=== PATIENT | female | born 1955 | race Caucasian/White ===

== ENCOUNTER 2019-07-16 11:33 | Inpatient (IN) | payer OTHER ==
[~2019-07-16] VITALS: Ht 160 cm; Wt 42.6 kg
[2019-07-16 11:38] VITALS: BP 97/74
[2019-07-16 12:08] LABS: HEMATOCRIT 36.1 % (37.0-47.0); HEMOGLOBIN 11.2 g/dl (12.0-16.0); MEAN CELL VOLUME 100.6 fl (81.0-99.0); MEAN CORPUSCULAR HGB 31.2 pg (27.0-31.0); MEAN PLATELET VOLUME 9.1 fl (9.6-12.3); PLATELET COUNT AUTOMATED 258 10*3/uL (130-400); RED BLOOD COUNT 3.59 10*6/uL (4.10-5.10); WHITE BLOOD COUNT 7.4 10*3/uL (4.8-10.8)
[2019-07-16 12:18] LABS: ACT PARTIAL THROMBO TIME 22.6 SECONDS (20.0-32.1); INTERNATIONAL NORM RATIO 0.9 (2.0-3.5)
[2019-07-16 12:24] LABS: ALBUMIN 3.1 gm/dl (3.1-4.5); ALKALINE PHOSPHATASE 58 U/L (45-117); BUN 20 mg/dl (7-24); CHLORIDE 107 mmol/L (98-107); CREATININE 0.55 mg/dL (0.55-1.02); LIPASE 233 U/L (73-393); POTASSIUM 4.5 mmol/L (3.5-5.1); SGOT/AST 16 IU/L (3-35); SGPT/ALT 34 U/L (12-78); SODIUM 141 mmol/L (136-145); TOTAL PROTEIN 6.1 gm/dL (6.4-8.2)
[2019-07-16 12:28] LABS: TROPONIN I < 0.015 ng/ml (<0.045)
[2019-07-16 12:31] LABS: TOTAL CELLS COUNTED 100 #CELLS
[2019-07-16 12:32] LABS: PLATELET SUFFICIENCY NORMAL (NORMAL); POLYCHROMASIA SLIGHT
--- NOTE | 2019-07-16 12:57 | NUR ---
PT REMAINS W/O ACUTE DISTRESS NOTED WITH SAFETY PRECAUTIONS INTACT,CALL LIGHT WITHIN REACH AND FAMILY @ BEDSIDE.
[2019-07-16 13:19] LABS: BILIRUBIN NEGATIVE (NEGATIVE); BLOOD NEGATIVE (NEGATIVE); CLARITY CLEAR (CLEAR); COLOR YELLOW (YELLOW); GLUCOSE NEGATIVE (NEGATIVE); KETONE NEGATIVE (NEGATIVE); LEUKO ESTERASE TRACE (NEGATIVE); NITRITE NEGATIVE (NEGATIVE); SPECIFIC GRAVITY 1.015 (1.005-1.030); UROBILINOGEN 0.2 E.U./dl (0.2-1.0)
[2019-07-16 13:35] LABS: RBC 0-2 rbc/hpf (0-2)
--- NOTE | 2019-07-16 13:37 | NUR ---
PT RESTING IN BED. SIDERAILS UP X2. IN NO ACUTE DISTRESS
--- NOTE | 2019-07-16 15:34 | NUR ---
DR. NIÑO OFFICE INFORMED OF CONSULT.
[2019-07-16 15:35] VITALS: BP 101/62
[2019-07-16 16:00] VITALS: BP 103/63
[2019-07-16] MEDS ORDERED: PROAIR HFA8.5 GM INH (16:08)
[2019-07-16] MEDS ORDERED: VITAMIN C500 M4 PO (16:08)
[2019-07-16] MEDS ORDERED: FISH OIL 1,0001 EAC4 PO (16:09)
[2019-07-16] MEDS ORDERED: IBU400 M1 PO (16:10)
[2019-07-16] MEDS ORDERED: RAYOS5 M1 PO (16:11)
[2019-07-16] MEDS ORDERED: PROTONIX40 MG PO (16:12)
[2019-07-16] MEDS ORDERED: PROBIOTIC250 MG PO (16:12)
[2019-07-16] MEDS ORDERED: SINGULAIR10 M1 PO (16:13)
[2019-07-16] MEDS ORDERED: PROVENTIL HFA6.7 GM NEB (16:13)
[2019-07-16] MEDS ORDERED: TRELEGY ELLIPT1 EACH INH (16:14)
[2019-07-16] MEDS ORDERED: VITAMIN B121000 MC1 PO (16:15)
[2019-07-16] MEDS ORDERED: ALPRAZOLAM0.25 M2 PO (18:05)
[2019-07-16 20:00] VITALS: BP 104/62
--- NOTE | 2019-07-16 20:31 | NUR ---
PRN XANAX, TYLENOL AND ZOFRAN GIVEN FOR PT COMPLAINTS OF ANXIETY, NAUSEA AND LEG PAIN. CALL LIGHT WITHIN REACH, WILL MONITOR
--- NOTE | 2019-07-16 23:45 | NUR ---
PATIENT SLEEPING, NO DISTRESS NOTED. CPAP IN PLACE
[2019-07-17] VITALS: BP 101/63
--- NOTE | 2019-07-17 04:39 | NUR ---
PATIENT SLEEPING. CALL LIGHT WITHIN REACH, O2 INTACT.
[2019-07-17 06:23] LABS: BASO % 0.3 % (0.0-1.0); EOS % 0.2 % (1.0-4.0); HEMATOCRIT 33.2 % (37.0-47.0); HEMOGLOBIN 10.2 g/dl (12.0-16.0); LYMPH # 1.4 10*3/uL (1.3-4.4); LYMPH % 23.7 % (27.0-41.0); MEAN CELL VOLUME 101.2 fl (81.0-99.0); MEAN CORPUSCULAR HGB 31.1 pg (27.0-31.0); MEAN CORPUSCULAR HGB CONC 30.7 g/dl (33.0-37.0); MEAN PLATELET VOLUME 9.7 fl (9.6-12.3); MONO # 0.5 10*3/uL (0.1-1.0); MONO % 7.7 % (3.0-9.0); NEUT # 3.9 10*3/uL (2.3-7.9); NEUT % 65.7 % (47.0-73.0); PLATELET COUNT AUTOMATED 232 10*3/uL (130-400); RED BLOOD COUNT 3.28 10*6/uL (4.10-5.10); WHITE BLOOD COUNT 5.9 10*3/uL (4.8-10.8)
[2019-07-17 06:47] LABS: BUN 18 mg/dl (7-24); CHLORIDE 108 mmol/L (98-107); POTASSIUM 4.2 mmol/L (3.5-5.1); SODIUM 143 mmol/L (136-145)
--- NOTE | 2019-07-17 07:41 | NUR ---
PHYSICAL THERAPY Screen and PT eval received will follow thank you Farheen Casanova PT
[2019-07-17 08:00] VITALS: BP 110/68
--- NOTE | 2019-07-17 09:00 | NUR ---
Director Electronics in to talk to patient. Patient states lives at home with daughter and grandson. There are few steps in the home. Physician: [facility] Patient's level of ADLs: MINIMAL ASSIST Patient has working utilities: all working DME: home oxygen, portable tanks Follow-up physician's appointment after d/c: will be made by hospitalist alex director upon discharge Does patient want to access PORTAL?: no Discharge plan discussed with patient, patient was ambulating in room with oxygen on and short of breath, she states she lives at home with her daughter and her grandson, she states she is independent in adls and ambualtion, she has been in [facility] for 2 weeks and recently discharged home with [facility] and also her oxygen is from [facility], discussed with her being weak and needing a possibly short term prison stay, educated her that she will receive 5 days of rehab and 24 hour care, she stated she was not opposed to going to a SNF but when she was in [facility] they stated she was unable to go to any area facilities, educated her that case planner will check area facilities and see if any of them accepted her insurance, case management will follow. YAKOV CHACKO
--- NOTE | 2019-07-17 11:45 | NUR ---
PT MEDICATED WITH XANAX UPON REQUEST FOR COMPLAINTS OF ANXIETY. WILL MONITOR FOR EFFECTIVENESS.
[2019-07-17 12:00] VITALS: BP 98/48
--- NOTE | 2019-07-17 13:00 | NUR ---
PER PATIENT, PRN XANAX HAS BEEN EFFECTIVE. NO FURTHER COMPLAINTS AT THIS TIME.
[2019-07-17] MEDS ORDERED: AUGMENTIN 875875 MG PO (14:03)
[2019-07-17] MEDS ORDERED: SEPTDS PO (14:03)
--- NOTE | 2019-07-17 14:41 | NUR ---
PHYSICAL THERAPY Vadim completed moderate complexity level [id number] full report to follow pt would benefit from further rehab prior to home. PT to work on transfers,amb with AD strengthening,balance/safety. Farheen Casanova PT
--- NOTE | 2019-07-17 14:52 | NUR ---
Occupational Therapy evaluation completed on the 4th floor with full eval to follow. Low complexity level. Daughter present during evaluation. Precuations: left knee vita/pain (pain prior to buckeling however inconsistent), IV site, 4L O2, fall risk. Recommend SNF. Work on balance, safety with transfers, dressing. Thank you for this referral, Sarah Peralta OTR/L
--- NOTE | 2019-07-17 15:30 | NUR ---
Patient resting quietly with no c/o discomfort. Respirations easy and regular. Vital signs stable. No overt distress. SAVANNAH PARSONS
--- NOTE | 2019-07-17 15:36 | NUR ---
prn xanax given d/t pt complaining of anxiety
[2019-07-17 16:00] VITALS: BP 103/62
--- NOTE | 2019-07-17 16:36 | NUR ---
PRN XANAX EFFECTIVE NO COMPLAINTS AT THIS TIME
[2019-07-17 20:00] VITALS: BP 112/66
--- NOTE | 2019-07-17 20:36 | NUR ---
PATIENT IS SLEEPING WITH EASY AND REGULAR RESPERS ON 4L O2 VIA NC. ASSESSMENT IS COMPLETE WITH NO C/O VOICED AT THIS TIME OR S/S OF DISTRESS NOTED. BED IS LOW, LOCKED, AND CALL LIGHT IS WITHIN REACH. WILL CONTINUE TO MONITOR, SEE SHIFT ASSESSMENT.
[2019-07-18] VITALS: BP 107/73
--- NOTE | 2019-07-18 04:12 | NUR ---
PATIENT SLEEPING, RESPERS NONLABORED 4L O2 VIA NC. CALL LIGHT IS WITHIN REACH.
[2019-07-18 08:00] VITALS: BP 104/56
--- NOTE | 2019-07-18 08:43 | NUR ---
After calling insurance company, they are stating the following snf facilities are in network: [facility]. [facility] is stating they are unable to accept her at this time. Referral faxed to [facility], waiting on benefits check.
--- NOTE | 2019-07-18 09:47 | NUR ---
OT NOTE Pt was seen this A.M. 1:1 for 17 minute OT session. Upon arrival pt was supine in bed. Pt identified by name and and had no complaints at this time. Pt presented to therapy on room air with resting SpO2 at 94%. Pt transferred supine to sit EOB with SBA. While sitting EOB pt donned B socks with SBA. Pt then completed sit to stand from bed level with CGA, pt attempting to complete mobility without the w/w resulting in pt being very unsteady and having multiple LOB backwards that required Lulu to correct. Pt transferred on/off standard commode with SBA and use of grab bar for UE support. Clothing management completed with SBA and toilet hygiene completed with SBA. Pt then stood sink side while washing her hands with SBA. Pt continued to attempt to complete mobility without the w/w and continued to have LOB backwards that required Lulu to correct. Pt was educated on safety concerns without the use of walker and pt was then willing to complete with use of w/w. Functional mobility completed around the room with use of w/w and CGA. Pt's SpO2 throughout remained anywhere between 92-94% on room air. Pt transferred back into bed sit to supine with SBA. There she was left with call [facility] tin hand, tray table in place, and family at bedside. Continue with rec D/C plan to SNF. JOANNA Yang/Brien
--- NOTE | 2019-07-18 10:23 | NUR ---
PHYSICAL THERAPY TREATMENT TIME: 09:20 AM - 09:45 25 MINUTES TOTAL Patient presented to therapy in standing coming out of restroom with no spO2 ON AT THIS TIME. When asked why she didn't have O2 on she said that Dr. Pickard and [facility] had told her to take the O2 off. This CONSULTING PROPERTY MANAGER inquired with KJ WELCH , who is the patient's nurse about whether the patient shOuld have spO2 OR NOT. KJ WELCH Talked to Loc from [facility] and Loc said she she should by on O2. a FEW MINUTES LATER LOC from [facility] called and let KJ WELCH know that the patient was taken off the O2 by Dr. Pickard WHEN SHE IS RESTING and with MODERATE ACTIVITY. Patient is on 3 liters normally and was earlier on 4 liters. Patient's daughter confirmed what Dr. Pickard had said and what respitory said. Patient's NURSE KJ WELCH said that patient can try walking without the spO2 to see how she does , but to keep pulse ox ON PATIENT'S FINGER. This CONSULTING PROPERTY MANAGER put pulse ox on patient's finger and patient transferred sit to stand with SBA. Patient ambulated 50' x 1 and then again for 44' x 1 with CGA X 1 to Close Supervision with beginning O2 SAT recorded as 93% without spO2 , DURING BOTH GAIT DISTANCES the O2 SAT RANGED BETWEEN 91% AND 94% and the at the end of the 2 nd gait distance the O2 SAT was recorded as 94%. THIS WAS WITH NO spO2. Patient performed TUG TEST IN 26 SECONDS TOTAL. Patient transferred to supine in bed with SBA. Patient was connected to wall with 3 liters of spO2 BUT DID NOT WANT the nasal canula at this time. Patient was left in supine in bed with head of bed elevated, call light within reach and daughter visitng in room with patient at this time. Patient was 1:1 with this CONSULTING PROPERTY MANAGER for 25 minutes total. AUGIE ALFARO CONSULTING PROPERTY MANAGER
[2019-07-18 12:00] VITALS: BP 110/52
--- NOTE | 2019-07-18 13:50 | NUR ---
OT NOTE Pt was seen this P.M. 1:1 for second OT session consisting of 15 minutes. Upon arrival pt was sitting upright on the EOB and presented to therapy on room air with resting SpO2 at 94%. Pt completed sit to stand from bed level with CGA. Pt attempted to complete mobility with no adaptive device and pt had LOB backwards that required Lulu to correct. Pt then completed functional mobility to the bathroom with CGA and use of w/w. There she transferred on/off standard commode with CGA and use of grab bar. Pt then stood sink side while washing her hands with CGA. Throughout activity pt's SpO2 dropped to 92%. Pt was left sitting upright on the EOB with call light in hand, tray table in place, and phone in reach. Continue with rec D/C plan to SNF. JOANNA Yang/Brien
--- NOTE | 2019-07-18 14:30 | NUR ---
TYLENOL EFF FOR C/O LEFT KNEE PAIN. WILL CONT TO MONITOR. CALL LIGHT IN REACH.
--- NOTE | 2019-07-18 14:33 | NUR ---
C/O PAIN TO LEFT KNEE OF 5/10. TYLENOL GIVEN AT THIS TIME. WILL CONT TO MONITOR. CALL LIGHT IN REACH.
--- NOTE | 2019-07-18 14:50 | NUR ---
PHYSICAL THERAPY TREATMENT TIME: 1:45 PM - 2:05 PM 20 MINUTES TOTAL PATIENT PRESENTED TO THERAPY IN SUPINE WITH HEAD OF BED ELEVATED AND BED ALARM ACTIVATED, PATIENT IS NOT ON SPO2 AT THIS TIME EVEN THOUGH THE NASAL CANULA IS PRESENT WITH 3 LITERS SPO2. PATIENT GIVES INFORMEED CONSENT FOR TREATMENT. PATIENT WAS IDENTIFIED BY NAME AND ON WRISTBAND. PATIENT PERFORMED BED MOBILITY WITH SBA. PATIENT SIT TO STAND FROM EOB WITH CGA X 1. PATIENT AMBULATED WITH WH WALKER AND CGA X 1 FOR 60' X 2 WITH O2 SATS AT BEGINNING AT 94% AND PULSE 107 AND DURING AMBULATION THE 02 SATS DROPPED TO 88% AT ONE POINT AND PULSE AT 135. PATIENT'S 02 SATS WERE AT 94% POST AMBULATION AND PULSE AT 116. PATIENT DID NOT USE SPO2 DURING AMBULATION. PATIENT TRANSFERRED BACK ONTO SITTING ON EOB WITH CGA X 1. PATIENT WAS LEFT IN SITTING ON EOB WITH CALL LIGHT WITHIN REACH. PATIENT WAS 1:1 WITH THIS GREETING CARD WRITER FOR 20 MINUTES TOTAL. AUGIE ALFARO GREETING CARD WRITER
--- NOTE | 2019-07-18 15:26 | NUR ---
C/O ANXIETY. XANAX GIVEN AT THIS TIME PER REQUEST. WILL CONT TO MONITOR. CALL LIGHT IN REACH.
--- NOTE | 2019-07-18 15:37 | NUR ---
OCCUPATIONAL THERAPY CO-SIGN I approve of the Occupational Therapy notes written above. Valery Lamb, OTR/L
[2019-07-18 16:00] VITALS: BP 111/89
[2019-07-18 20:00] VITALS: BP 136/68
[2019-07-19] VITALS: BP 107/66; BP 141/67
--- NOTE | 2019-07-19 00:25 | NUR ---
PATIENT REQUESTED TYLENOL AT 0020. WHILE ADMINISTERING REQUESTED TYLENOL PATIENT BECAME VERY RUDE AND NASTY STATING "I HAVE BEEN WAITING FOR TYLENOL SINCE I GOT MY ICE PACK." WHEN TYING TO FIGURE OUT TIME FRAME OF TYLENOL REQUEST PATIENT CONTINUE TO BE RUDE. PRN TYLENOL GIVEN FOR KNEE PAIN AND ZOFRAN FOR NAUSEA. CALL LIGHT IS WITHIN REACH. WILL MONITOR EFFECT.
[2019-07-19 08:00] VITALS: BP 118/72
--- NOTE | 2019-07-19 09:00 | NUR ---
OT NOTE Pt was seen this A.M. 1:1 for 28 minute OT session. Upon arrival pt was sitting upright in the recliner. Pt identified by name and and had no complaints at this time. Pt presented to therapy on room air and resting SpO2 95% and heart rate 99 bpm. While sitting in the recliner pt was requested to doff and gissel B socks which she was able to complete with energy conservation technique of bringing her leg up over knee. Sit to stand then completed from the chair level with CGA and use of w/w for UE support. Pt continued to attempt to walk without the walker increasing risk of falls due to being unsteady at times, educated pt on safety concerns. Functional mobility was then completed into the bathroom with CGA and use of w/w. There she transferred on/off standard commode with CGA and use of grab bar for UE support. Clothing management completed with CGA and toilet hygiene completed with distant supervision while seated. Pt then stood sink side while washing her hands, face, completing oral and hair care with CGA. Throughout pt was educated on energy conservation techniques and pt verbalized understanding. Throughout activity pt's SpO2 dropped to 91% and after sitting back into the recliner dropped to 90%. After aprox 15 second recovery pt's SpO2 raised back to 95%. Pt was left sittng upright in the recliner with call light in hand, tray table in place, and phone in reach. Continue with rec D/C plan to SNF. YONG Yang
--- NOTE | 2019-07-19 09:00 | NUR ---
case management visits with patient, she stated she didn't feel she needed to go to a short term jail, she felt stronger since admission and stated she already has [facility], nursing, physical and occupational therapy, she also has home oxygen with portable tanks, patient was ambulating in room with no loss of balance at this time, case management will notify [facility] when she is discharged
--- NOTE | 2019-07-19 10:16 | NUR ---
PT GIVEN XANAX AT THIS TIME PER REQUEST FOR C/O ANXIETY. WILL CONT TO MONITOR. CALL LIGHT IN REACH.
--- NOTE | 2019-07-19 11:16 | NUR ---
RAHEEMX EFF. WILL CONT TO MONITOR. CALL LIGHT IN REACH.
[2019-07-19 12:00] VITALS: BP 116/64
--- NOTE | 2019-07-19 13:25 | NUR ---
PHYSICAL THERAPY Patient seen this pm 1:1 for therapy visit and was sitting up in bedside chair upon therapist arrival. Patient identified by name / OOB and was quiet pleasant this afternoon voicing no new c/o's. Patient SPO2 94% on RA, with HR 102 bpm prior to transfering sit to stand SBA. Patient ambulated with use of wh walker, 100'x 1, SBA, demonstrating slow, steady marshall and increased caution during all turns. Patient instructed to pace herself to improve energy conservation and returned to bedside chair with no LOB this session. Patient still demonstrates a little fatigue following gait ex and remained in bedside chair with call light, tray table and cell phone. Will continue per POC as tolerated, total treatment time 14 minutes. Luan Chahal, UNIVERSITY TUTOR
--- NOTE | 2019-07-19 14:18 | NUR ---
case management spoke with Alvina from [facility], patient's information faxed to Alvina, she stated they would continue to follow patient, informed her that patient is a discharge for today or tomorrow
[2019-07-19 16:00] VITALS: BP 133/80
--- NOTE | 2019-07-19 18:12 | NUR ---
C/O PAIN TO LEFT KNEE OF 8/10 AND ANXIETY. GIVEN TYLENOL AND XANAX AT THIS TIME. WILL CONT TO MONITOR. CALL LIGHT IN REACH.
[2019-07-19 20:00] VITALS: BP 130/72
--- NOTE | 2019-07-19 21:32 | NUR ---
PATIENT MEDICATED WITH ZOFRAN AND DULCOLAX FOR C/O NAUSEA AND CONSTIPATION. WILL MONITOR
[2019-07-20] VITALS: BP 115/75
--- NOTE | 2019-07-20 04:03 | NUR ---
PATIENT MEDICATED WITH ZOFRAN/TYLENOL AND XANAX FOR C/O GENERALIZED PAIN/NAUSEA/NERVES. WILL MONITOR
--- NOTE | 2019-07-20 05:03 | NUR ---
ZOFRAN/TYLENOL/XANAX EFFECTIVE
[2019-07-20 06:50] LABS: BASO % 0.4 % (0.0-1.0); EOS % 0.1 % (1.0-4.0); HEMATOCRIT 35.2 % (37.0-47.0); HEMOGLOBIN 10.6 g/dl (12.0-16.0); LYMPH # 1.6 10*3/uL (1.3-4.4); LYMPH % 20.4 % (27.0-41.0); MEAN CELL VOLUME 103.8 fl (81.0-99.0); MEAN CORPUSCULAR HGB 31.3 pg (27.0-31.0); MEAN CORPUSCULAR HGB CONC 30.1 g/dl (33.0-37.0); MEAN PLATELET VOLUME 9.6 fl (9.6-12.3); MONO # 0.5 10*3/uL (0.1-1.0); MONO % 7.1 % (3.0-9.0); NEUT # 5.4 10*3/uL (2.3-7.9); PLATELET COUNT AUTOMATED 229 10*3/uL (130-400); RED BLOOD COUNT 3.39 10*6/uL (4.10-5.10); RED CELL DISTRI WIDTH 15.8 % (0-14.5); WHITE BLOOD COUNT 7.7 10*3/uL (4.8-10.8)
[2019-07-20 08:00] VITALS: BP 118/68
--- NOTE | 2019-07-20 09:00 | NUR ---
case management visits with patient, she will return home when medically stable and will have [facility] health follow her, no other needs at this time
--- NOTE | 2019-07-20 11:55 | NUR ---
OT NOTE PATIENT SEEN OT THIS AM 15 MINUTES. PATIENT IDENTIFIED BY NAME AND DATE OF . PATIENT COMPLETED LB DRESSING SEATED EOB MO AFTER MURILLO SULLY SOCKS. COMPLETED FUNCTIONAL AMBULATION TO BATROOM CGA USE FWW SUPPORT COMPLETING TOILET TRANSFER SUPERVISION ON 02 WITH 02 SATS REMAINING WITHIN NORMAL RANGE. PATIENT REPORTS 3/10 KNEE PAIN THIS DATE. PATIENT COMPLETED STAND TOLERANCE ACTIVITY USE FWW SUPPORT 3 1/2 MINTES F+ BALANCE AND MIN VERBAL CUES SAFETY AND SOME INSTABILITY NOTED. CONTINUE TOWARDS PLAN OF CARE. GONZALO MARSHALL/Brien
--- NOTE | 2019-07-20 12:02 | NUR ---
PT C/O CONSTIPATION. GIVEN DULCOLAX AT THIS TIME.
--- NOTE | 2019-07-20 12:04 | NUR ---
PHYSICAL THERAPY TREATMENT TIME: 09:00 AM - 09:15 AM 15 MINUTES TOTAL Patient presented to therapy this morning in sitting EOB with tray table in front of her and no spo2 at this time. Patient is supposed to be on spO2 today even though she was not on it yesterday per DR. Pickard. Patient is 4 liters of spO2 VIA NASAL CANULA. This MEDICAL INSURANCE CLAIMS PROCESSOR put spO2 on patient. Patient has no complaints except for some mild SOB from being off spO2. Patient has continued L KNEE pain of 5/10. Patient performed supine to sitting at EOB with with SBA. Patient sit to stand from EOB with MIN A X 1. Patient ambulated with Wh Walker and 4 liters of spO2 VIA NASAL CANULA FOR 60' X 1 amd 50' x 1 with CGA X 1 to Close Supervision with O2 SATs measured and recorded as 94% pre ambulation and 91% post ambulation and quickley recovering to 94% post ambulation. Patient transferred back to supine in bed with SBA. Patient left in supine with head of bed elevated, call light within reach and tray table near patient. Patient was 1:1 with this MEDICAL INSURANCE CLAIMS PROCESSOR for 15 minutes total. AUGIE ALFARO TPA
--- NOTE | 2019-07-20 13:22 | NUR ---
PATIENT C/O KNEE PAIN. RATE 5/10 ON PAIN SCALE. ALSO C/O ANXIETY AND STATES THAT SHE HAD A SMALL EMESIS DUE TO SHE WAS TRYING TO COUGH UP PHLEGM. MEDICATED WITH XANAX AND ZOFRAN PER PRN ORDERS. WILL CONTINUE TO MONITOR.
[2019-07-20] MEDS ORDERED: PREDNISONE10 MG PO (13:27)
--- NOTE | 2019-07-20 14:36 | NUR ---
PT DISCHARGED AT THIS TIME. IV REMOVED AND PRESSURE DRESSING APPLIED. VERBALIZED UNDERSTANDING OF DISCHARGE INSTRUCTIONS.
--- NOTE | 2019-07-20 15:34 | NUR ---
PHYSICAL THERAPY CO-SIGN I approve of the Physical Therapy notes written above. Farheen Casanova PT
--- NOTE | 2019-07-23 08:09 | NUR ---
OCCUPATIONAL THERAPY CO-SIGN I approve of the Occupational Therapy notes written above. Valery Lamb, OTR/L
== END 2019-07-20 14:36 | disposition home health service (06) | DRG 193 ==
LOC: ED 11:33 → EDHOLD 14:44 → 4E 14:44
PROVIDERS: Emergency Medicine; Student in an Organized Health Care Education/Training Program; ADMIT Internal Medicine
DX: J18.9 Pneumonia, unspecified organism (principal); I50.31 Acute diastolic (congestive) heart failure; J44.1 Chronic obstructive pulmonary disease with (acute) exacerbation; J96.11 Chronic respiratory failure with hypoxia; J96.12 Chronic respiratory failure with hypercapnia; J44.0 Chronic obstructive pulmonary disease with (acute) lower respiratory infection; R91.1 Solitary pulmonary nodule; J30.2 Other seasonal allergic rhinitis; D53.9 Nutritional anemia, unspecified; E83.41 Hypermagnesemia; D72.810 Lymphocytopenia; K21.9 Gastro-esophageal reflux disease without esophagitis; Z80.1 Family history of malignant neoplasm of trachea, bronchus and lung; Z90.711 Acquired absence of uterus with remaining cervical stump; Z88.5 Allergy status to narcotic agent; Z81.8 Family history of other mental and behavioral disorders; Z86.718 Personal history of other venous thrombosis and embolism; Z79.01 Long term (current) use of anticoagulants

== ENCOUNTER 2020-11-16 11:32 | Emergency (ER) | payer MEDICARE ==
[~2020-11-16] VITALS: Wt 53.1 kg
[~2020-11-16 11:32] MED LIST: ALPRAZOLAM0.25 M2 PO; AUGMENTIN 875875 MG PO; FISH OIL 1,0001 EAC4 PO; IBU400 M1 PO; PREDNISONE10 MG PO; PROAIR HFA8.5 GM INH; PROBIOTIC250 MG PO; PROTONIX40 MG PO; PROVENTIL HFA6.7 GM NEB; RAYOS5 M1 PO; SEPTDS PO; SINGULAIR10 M1 PO; TRELEGY ELLIPT1 EACH INH; VITAMIN B121000 MC1 PO; VITAMIN C500 M4 PO
[2020-11-16 12:17] LABS: BASO # 0.1 10*3/uL (0.0-0.1); EOS # 0.2 10*3/uL (0.0-0.4); EOS % 3.3 % (1.0-4.0); HEMATOCRIT 42.6 % (37.0-47.0); LYMPH # 1.6 10*3/uL (1.3-4.4); LYMPH % 32.8 % (27.0-41.0); MEAN CELL VOLUME 94.2 fl (81.0-99.0); MEAN CORPUSCULAR HGB 29.6 pg (27.0-31.0); MEAN CORPUSCULAR HGB CONC 31.5 g/dl (33.0-37.0); MEAN PLATELET VOLUME 9.4 fl (9.6-12.3); MONO # 0.5 10*3/uL (0.1-1.0); MONO % 11.3 % (3.0-9.0); NEUT # 2.5 10*3/uL (2.3-7.9); NEUT % 51.4 % (47.0-73.0); PLATELET COUNT AUTOMATED 315 10*3/uL (130-400); RED BLOOD COUNT 4.52 10*6/uL (4.10-5.10); RED CELL DISTRI WIDTH 13.6 % (0-14.5); WHITE BLOOD COUNT 4.8 10*3/uL (4.8-10.8)
[2020-11-16 12:35] LABS: ALBUMIN 3.4 gm/dl (3.1-4.5); ALKALINE PHOSPHATASE 90 U/L (45-117); BUN 8 mg/dl (7-24); CHLORIDE 113 mmol/L (98-107); CREATININE 0.66 mg/dL (0.55-1.02); POTASSIUM 3.5 mmol/L (3.5-5.1); SGOT/AST 14 IU/L (3-35); SGPT/ALT 14 U/L (12-78); SODIUM 143 mmol/L (136-145); TOTAL PROTEIN 7.7 gm/dL (6.4-8.2)
[2020-11-16] MEDS ORDERED: PREDNISONE50 MG PO (13:49)
[2020-11-16] MEDS ORDERED: LEVOFLOXACIN500 MG PO (13:49)
== END 2020-11-16 14:01 | disposition home or self-care (01) ==
LOC: ED 11:32
PROVIDERS: Student in an Organized Health Care Education/Training Program
DX: J44.1 Chronic obstructive pulmonary disease with (acute) exacerbation (principal); Z72.3 Lack of physical exercise; Z87.891 Personal history of nicotine dependence; Z90.89 Acquired absence of other organs; Z79.899 Other long term (current) drug therapy; Z88.5 Allergy status to narcotic agent

== ENCOUNTER 2022-06-12 13:12 | Inpatient (IN) | payer MEDICARE ==
[~2022-06-12] VITALS: Ht 160 cm; Wt 39.3 kg
[~2022-06-12 13:12] MED LIST changes: +LEVOFLOXACIN500 MG PO; +LEVOTHYROXINE100 MC1 PO; +LIDODERM1 EACH T; +MELOXICAM15 MG PO; +PREDNISONE50 MG PO
[2022-06-12 13:20] VITALS: BP 94/66
[2022-06-12 13:47] LABS: BASO % 0.6 % (0.0-1.0); EOS # 0.1 10*3/uL (0.0-0.4); EOS % 0.9 % (1.0-4.0); HEMATOCRIT 43.8 % (37.0-47.0); LYMPH # 1.6 10*3/uL (1.3-4.4); LYMPH % 25.3 % (27.0-41.0); MEAN CELL VOLUME 92.4 fl (81.0-99.0); MEAN CORPUSCULAR HGB CONC 33.6 g/dl (33.0-37.0); MEAN PLATELET VOLUME 9.9 fl (9.6-12.3); MONO # 0.4 10*3/uL (0.1-1.0); MONO % 6.4 % (3.0-9.0); NEUT # 4.3 10*3/uL (2.3-7.9); NEUT % 66.8 % (47.0-73.0); PLATELET COUNT AUTOMATED 239 10*3/uL (130-400); RED BLOOD COUNT 4.74 10*6/uL (4.10-5.10); RED CELL DISTRI WIDTH 12.7 % (0-14.5); WHITE BLOOD COUNT 6.4 10*3/uL (4.8-10.8)
[2022-06-12 14:09] LABS: ALKALINE PHOSPHATASE 65 U/L (46-116); BUN 7 mg/dl (9-23); CHLORIDE 105 mmol/L (98-107); CREATININE 0.65 mg/dL (0.55-1.02); SGPT/ALT 8 U/L (10-49); SODIUM 139 mmol/L (136-145); TOTAL PROTEIN 6.1 gm/dL (6.0-8.0)
[2022-06-12 15:31] VITALS: BP 100/54
[2022-06-12 16:07] LABS: FREE T4 1.37 ng/dl (0.89-1.76); THYROID STIM HORMONE (HS) 17.581 uIU/ml (0.550-4.780)
[2022-06-12 16:41] LABS: ABG BASE EXCESS -3.9 mmol/L (-2.0-2.0); ARTERIAL BLOOD GAS PH 7.294 (7.35-7.45); ARTERIAL BLOOD GAS PO2 97.6 (80-90)
[2022-06-12 19:30] VITALS: BP 134/78
[2022-06-12 21:57] VITALS: BP 95/58
[2022-06-13] VITALS (11 sets, daily range): BP systolic 78–111; BP diastolic 40–72
[2022-06-13 05:06] LABS: ALKALINE PHOSPHATASE 55 U/L (46-116); BUN 8 mg/dl (9-23); CHLORIDE 108 mmol/L (98-107); CREATININE 0.58 mg/dL (0.55-1.02); POTASSIUM 3.7 mmol/L (3.4-5.1); SODIUM 142 mmol/L (136-145); TOTAL PROTEIN 5.1 gm/dL (6.0-8.0)
[2022-06-13 05:12] LABS: SGPT/ALT < 7 U/L (10-49)
[2022-06-13 06:11] LABS: BASO % 0.7 % (0.0-1.0); EOS # 0.1 10*3/uL (0.0-0.4); EOS % 1.7 % (1.0-4.0); HEMATOCRIT 39.3 % (37.0-47.0); LYMPH # 1.9 10*3/uL (1.3-4.4); LYMPH % 34.3 % (27.0-41.0); MEAN CELL VOLUME 94.7 fl (81.0-99.0); MEAN CORPUSCULAR HGB 30.4 pg (27.0-31.0); MEAN CORPUSCULAR HGB CONC 32.1 g/dl (33.0-37.0); MEAN PLATELET VOLUME 10.7 fl (9.6-12.3); MONO # 0.6 10*3/uL (0.1-1.0); MONO % 10.2 % (3.0-9.0); NEUT # 2.9 10*3/uL (2.3-7.9); NEUT % 52.9 % (47.0-73.0); PLATELET COUNT AUTOMATED 211 10*3/uL (130-400); RED BLOOD COUNT 4.15 10*6/uL (4.10-5.10); WHITE BLOOD COUNT 5.4 10*3/uL (4.8-10.8)
[2022-06-13 06:23] LABS: BILIRUBIN Negative (Negative); BLOOD Negative (Negative); CLARITY Clear (Clear); COLOR Yellow (Yellow); GLUCOSE Negative (Negative); KETONE Trace (Negative); LEUKO ESTERASE Negative (Negative); NITRITE Negative (Negative); PH 5.5 (4.5-8.0); SPECIFIC GRAVITY >= 1.030 (1.001-1.030); UROBILINOGEN 0.2 E.U./dl (0.0-1.0)
[2022-06-13 06:30] LABS: URINE AMPHETAMINES Positive (1000ng/ml); URINE BARBITURATES Negative (200ng/ml); URINE BENZODIAZEPINES Positive (200ng/ml); URINE CANNABINOIDS (THC) Negative (50ng/ml); URINE COCAINE Negative (300ng/ml); URINE METHADONE Negative (300ng/ml); URINE OPIATES Negative (300ng/ml); URINE PHENCYCLIDINE Negative (25ng/ml)
[2022-06-13 06:48] LABS: BACTERIA 2+; CALCIUM OXALATE CRYSTALS 1+; EPITHELIAL CELLS 0-2; MUCOUS TRACE; RBC 0-2 rbc/hpf (0-2); WBC 0-2 wbc/hpf (0-5)
[2022-06-14 05:21] LABS: ALKALINE PHOSPHATASE 53 U/L (46-116); BUN 6 mg/dl (9-23); CHLORIDE 106 mmol/L (98-107); CREATININE 0.53 mg/dL (0.55-1.02); POTASSIUM 3.8 mmol/L (3.4-5.1); SODIUM 140 mmol/L (136-145); TOTAL PROTEIN 5.2 gm/dL (6.0-8.0)
[2022-06-14 05:39] LABS: SGPT/ALT < 7 U/L (10-49)
[2022-06-14 06:08] LABS: BASO # 0.1 10*3/uL (0.0-0.1); BASO % 1.1 % (0.0-1.0); EOS # 0.1 10*3/uL (0.0-0.4); EOS % 3.2 % (1.0-4.0); HEMATOCRIT 37.9 % (37.0-47.0); LYMPH # 1.5 10*3/uL (1.3-4.4); LYMPH % 33.3 % (27.0-41.0); MEAN CELL VOLUME 94.3 fl (81.0-99.0); MEAN CORPUSCULAR HGB 31.3 pg (27.0-31.0); MEAN CORPUSCULAR HGB CONC 33.2 g/dl (33.0-37.0); MEAN PLATELET VOLUME 10.3 fl (9.6-12.3); MONO # 0.3 10*3/uL (0.1-1.0); MONO % 7.3 % (3.0-9.0); NEUT # 2.4 10*3/uL (2.3-7.9); NEUT % 55.1 % (47.0-73.0); PLATELET COUNT AUTOMATED 199 10*3/uL (130-400); RED BLOOD COUNT 4.02 10*6/uL (4.10-5.10); RED CELL DISTRI WIDTH 12.6 % (0-14.5); WHITE BLOOD COUNT 4.4 10*3/uL (4.8-10.8)
[2022-06-14 08:00] VITALS: BP 93/51
[2022-06-14 12:00] VITALS: BP 99/57
[2022-06-14] MEDS ORDERED: STIOLTO RESPIMAT4 GM INH (13:03)
[2022-06-14] MEDS ORDERED: PROTONIX40 MG PO (13:04)
[2022-06-14] MEDS ORDERED: CYMBALTA60 MG PO (13:06)
[2022-06-14] MEDS ORDERED: ARNUITY ELLIPT50 MCG INH (13:10)
[2022-06-14] MEDS ORDERED: MIRALAX POWDER17 G1 PO (13:12)
[2022-06-14] MEDS ORDERED: SENNA8.6 MG PO (13:13)
[2022-06-14 16:00] VITALS: BP 104/58
[2022-06-14 20:00] VITALS: BP 102/52
[2022-06-15] VITALS: BP 102/60
[2022-06-15 06:32] LABS: BASO % 0.9 % (0.0-1.0); EOS # 0.1 10*3/uL (0.0-0.4); EOS % 2.5 % (1.0-4.0); HEMATOCRIT 34.4 % (37.0-47.0); LYMPH # 1.4 10*3/uL (1.3-4.4); LYMPH % 31.4 % (27.0-41.0); MEAN CELL VOLUME 92.7 fl (81.0-99.0); MEAN CORPUSCULAR HGB 30.5 pg (27.0-31.0); MEAN CORPUSCULAR HGB CONC 32.8 g/dl (33.0-37.0); MEAN PLATELET VOLUME 10.7 fl (9.6-12.3); MONO # 0.4 10*3/uL (0.1-1.0); MONO % 8.8 % (3.0-9.0); NEUT # 2.4 10*3/uL (2.3-7.9); NEUT % 56.4 % (47.0-73.0); PLATELET COUNT AUTOMATED 198 10*3/uL (130-400); RED BLOOD COUNT 3.71 10*6/uL (4.10-5.10); RED CELL DISTRI WIDTH 12.6 % (0-14.5); WHITE BLOOD COUNT 4.3 10*3/uL (4.8-10.8)
[2022-06-15 08:00] VITALS: BP 117/88
[2022-06-15 09:27] LABS: ALKALINE PHOSPHATASE 53 U/L (46-116); BUN 6 mg/dl (9-23); CHLORIDE 105 mmol/L (98-107); CREATININE 0.52 mg/dL (0.55-1.02); POTASSIUM 3.7 mmol/L (3.4-5.1); SODIUM 143 mmol/L (136-145); TOTAL PROTEIN 5.3 gm/dL (6.0-8.0)
[2022-06-15 09:36] LABS: SGPT/ALT < 7 U/L (10-49)
[2022-06-15] MEDS ORDERED: ASPIRIN ADULT L81 M2 PO (11:53)
[2022-06-15] MEDS ORDERED: TOPROL XL25 MG PO (11:53)
== END 2022-06-15 12:45 | disposition home or self-care (01) | DRG 280 ==
LOC: ED 13:12 → EDHOLD 14:45 → 4E 06-13 21:50
PROVIDERS: Family Medicine; Internal Medicine; ADMIT Emergency Medicine; ATTEND Emergency Medicine
PROC: 5A09357 Assistance with Respiratory Ventilation, Less than 24 Consecutive Hours, Continuous Positive Airway Pressure (ICD-10-PCS; principal; 2022-06-12)
PROC: 5A09357 Assistance with Respiratory Ventilation, Less than 24 Consecutive Hours, Continuous Positive Airway Pressure (ICD-10-PCS; 2022-06-13)
DX: I21.4 Non-ST elevation (NSTEMI) myocardial infarction (principal); G92.8 Other toxic encephalopathy; J96.11 Chronic respiratory failure with hypoxia; E46 Unspecified protein-calorie malnutrition; Z94.2 Lung transplant status; Z68.1 Body mass index [BMI] 19.9 or less, adult; K21.9 Gastro-esophageal reflux disease without esophagitis; G89.29 Other chronic pain; Z66 Do not resuscitate; M25.511 Pain in right shoulder; J43.1 Panlobular emphysema; J30.2 Other seasonal allergic rhinitis; F15.10 Other stimulant abuse, uncomplicated; T43.655A Adverse effect of methamphetamines, initial encounter; Z88.6 Allergy status to analgesic agent; Z90.711 Acquired absence of uterus with remaining cervical stump; Z80.1 Family history of malignant neoplasm of trachea, bronchus and lung; Z87.891 Personal history of nicotine dependence; Z81.8 Family history of other mental and behavioral disorders; Z86.718 Personal history of other venous thrombosis and embolism; Y92.89 Other specified places as the place of occurrence of the external cause

== ENCOUNTER → 2022-09-21 | Outpatient (CLI) | payer MEDICARE ==
[~2022-09-21] MED LIST changes: +ARNUITY ELLIPT50 MCG INH; +ASPIRIN ADULT L81 M2 PO; +CYMBALTA60 MG PO; +MIRALAX POWDER17 G1 PO; +SENNA8.6 MG PO; +STIOLTO RESPIMAT4 GM INH; +TOPROL XL25 MG PO
[2022-09-21 17:53] LABS: BASO # 0.1 10*3/uL (0.0-0.1); BASO % 1.4 % (0.0-1.0); EOS # 0.1 10*3/uL (0.0-0.4); EOS % 2.1 % (1.0-4.0); HEMATOCRIT 39.5 % (37.0-47.0); LYMPH # 1.5 10*3/uL (1.3-4.4); LYMPH % 34.3 % (27.0-41.0); MEAN CORPUSCULAR HGB 30.5 pg (27.0-31.0); MEAN CORPUSCULAR HGB CONC 32.4 g/dl (33.0-37.0); MEAN PLATELET VOLUME 9.7 fl (9.6-12.3); MONO # 0.4 10*3/uL (0.1-1.0); MONO % 8.3 % (3.0-9.0); NEUT # 2.3 10*3/uL (2.3-7.9); NEUT % 53.7 % (47.0-73.0); PLATELET COUNT AUTOMATED 269 10*3/uL (130-400); RED CELL DISTRI WIDTH 12.2 % (0-14.5); WHITE BLOOD COUNT 4.3 10*3/uL (4.8-10.8)
[2022-09-21 17:57] LABS: BILIRUBIN Negative (Negative); BLOOD Negative (Negative); CLARITY Clear (Clear); COLOR Yellow (Yellow); GLUCOSE Negative (Negative); KETONE Negative (Negative); LEUKO ESTERASE Trace (Negative); NITRITE Negative (Negative); SPECIFIC GRAVITY <= 1.005 (1.001-1.030); UROBILINOGEN 0.2 E.U./dl (0.0-1.0)
[2022-09-21 18:03] LABS: BACTERIA 1+; RBC 0-2 rbc/hpf (0-2)
[2022-09-21 18:05] LABS: URINE AMPHETAMINES Negative (1000ng/ml); URINE BARBITURATES Negative (200ng/ml); URINE BENZODIAZEPINES Positive (200ng/ml); URINE CANNABINOIDS (THC) Negative (50ng/ml); URINE COCAINE Negative (300ng/ml); URINE METHADONE Negative (300ng/ml); URINE OPIATES Negative (300ng/ml); URINE PHENCYCLIDINE Negative (25ng/ml)
[2022-09-21 18:12] LABS: ALKALINE PHOSPHATASE 85 U/L (46-116); BUN 12 mg/dl (9-23); CHLORIDE 105 mmol/L (98-107); CHOLESTEROL 179 mg/dL (<200); FREE T4 0.79 ng/dl (0.89-1.76); LDL CHOLESTEROL 104 mg/dL (9-159); POTASSIUM 4.1 mmol/L (3.4-5.1); TOTAL PROTEIN 6.5 gm/dL (6.0-8.0); TRIGLYCERIDES 137 mg/dl (<150)
[2022-09-21 18:16] LABS: SGPT/ALT < 7 U/L (10-49); THYROID STIM HORMONE (HS) 30.378 uIU/ml (0.550-4.780)
[2022-09-21 18:24] LABS: VITAMIN D, 25-HYDROXY 22.9 ng/mL (30-100)
== END | disposition home or self-care (01) ==
LOC: LAB 17:09
PROVIDERS: Family Medicine
DX: Z13.6 Encounter for screening for cardiovascular disorders (principal); F41.8 Other specified anxiety disorders; E03.9 Hypothyroidism, unspecified; R73.01 Impaired fasting glucose; E55.9 Vitamin D deficiency, unspecified; Z79.899 Other long term (current) drug therapy

== ENCOUNTER 2023-07-09 08:25 | Inpatient (IN) | payer MEDICARE ==
[~2023-07-09] VITALS: Ht 160 cm; Wt 49.1 kg
[2023-07-09 08:33] VITALS: BP 103/66
[2023-07-09 09:16] LABS: EOS # 0.1 10*3/uL (0.0-0.4); EOS % 2.4 % (1.0-4.0); HEMATOCRIT 39.1 % (37.0-47.0); LYMPH # 1.4 10*3/uL (1.3-4.4); LYMPH % 32.3 % (27.0-41.0); MEAN CELL VOLUME 96.3 fl (81.0-99.0); MEAN CORPUSCULAR HGB 28.8 pg (27.0-31.0); MEAN CORPUSCULAR HGB CONC 29.9 g/dl (33.0-37.0); MEAN PLATELET VOLUME 9.5 fl (9.6-12.3); MONO # 0.3 10*3/uL (0.1-1.0); MONO % 7.6 % (3.0-9.0); NEUT # 2.4 10*3/uL (2.3-7.9); NEUT % 56.5 % (47.0-73.0); PLATELET COUNT AUTOMATED 235 10*3/uL (130-400); RED BLOOD COUNT 4.06 10*6/uL (4.10-5.10); RED CELL DISTRI WIDTH 12.5 % (0-14.5); WHITE BLOOD COUNT 4.2 10*3/uL (4.8-10.8)
[2023-07-09 09:24] LABS: BILIRUBIN Negative (Negative); BLOOD Negative (Negative); CLARITY Clear (Clear); COLOR Yellow (Yellow); GLUCOSE Negative (Negative); KETONE Negative (Negative); LEUKO ESTERASE Negative (Negative); NITRITE Negative (Negative)
[2023-07-09 09:38] LABS: ACT PARTIAL THROMBO TIME 29.3 SECONDS (20.0-32.1)
[2023-07-09 09:46] LABS: ALKALINE PHOSPHATASE 73 U/L (46-116); BUN 14 mg/dl (9-23); CHLORIDE 109 mmol/L (98-107); POTASSIUM 4.6 mmol/L (3.4-5.1); TOTAL PROTEIN 6.1 gm/dL (6.0-8.0)
[2023-07-09 09:49] LABS: SGPT/ALT < 7 U/L (5-49)
[2023-07-09 10:00] LABS: URINE AMPHETAMINES Negative (1000ng/ml); URINE BARBITURATES Negative (200ng/ml); URINE BENZODIAZEPINES Positive (200ng/ml); URINE CANNABINOIDS (THC) Negative (50ng/ml); URINE COCAINE Negative (300ng/ml); URINE METHADONE Negative (300ng/ml); URINE OPIATES Negative (300ng/ml); URINE PHENCYCLIDINE Negative (25ng/ml)
[2023-07-09 10:01] LABS: BACTERIA 3+
[2023-07-09 10:02] LABS: HYALINE CAST 0-2; WBC 0-2 wbc/hpf (0-5)
[2023-07-09 10:03] LABS: EPITHELIAL CELLS 0-2
[2023-07-09] MEDS ORDERED: Motrin,Rufen400 MG PO (10:37)
[2023-07-09] MEDS ORDERED: IPRATROPIU0.2 MG/1 M NEB (10:39)
[2023-07-09] MEDS ORDERED: MEGESTROL PO (10:40)
[2023-07-09] MEDS ORDERED: Ondansetron4 MG PO (10:40)
[2023-07-09] MEDS ORDERED: VITAMIN C500 M8 PO (10:41)
[2023-07-09 11:40] VITALS: BP 101/60
[2023-07-09 13:00] VITALS: BP 94/70
[2023-07-09 18:54] VITALS: BP 108/61
[2023-07-10 02:18] VITALS: BP 121/84
[2023-07-10 05:14] VITALS: BP 118/74
[2023-07-10 06:09] LABS: BASO % 0.4 % (0.0-1.0); EOS # 0.1 10*3/uL (0.0-0.4); EOS % 0.9 % (1.0-4.0); HEMATOCRIT 38.6 % (37.0-47.0); LYMPH # 0.7 10*3/uL (1.3-4.4); LYMPH % 10.4 % (27.0-41.0); MEAN CELL VOLUME 93.9 fl (81.0-99.0); MEAN CORPUSCULAR HGB 29.4 pg (27.0-31.0); MEAN CORPUSCULAR HGB CONC 31.3 g/dl (33.0-37.0); MONO # 0.3 10*3/uL (0.1-1.0); MONO % 3.7 % (3.0-9.0); NEUT # 5.8 10*3/uL (2.3-7.9); NEUT % 84.5 % (47.0-73.0); PLATELET COUNT AUTOMATED 190 10*3/uL (130-400); RED BLOOD COUNT 4.11 10*6/uL (4.10-5.10); RED CELL DISTRI WIDTH 12.5 % (0-14.5); WHITE BLOOD COUNT 6.8 10*3/uL (4.8-10.8)
[2023-07-10 07:30] LABS: ALKALINE PHOSPHATASE 76 U/L (46-116); BUN 12 mg/dl (9-23); CHLORIDE 107 mmol/L (98-107); CHOLESTEROL 173 mg/dL (<200); FREE T4 0.75 ng/dl (0.89-1.76); LDL CHOLESTEROL 112 mg/dL (9-159); TOTAL PROTEIN 6.1 gm/dL (6.0-8.0); TRIGLYCERIDES 82 mg/dl (<150)
[2023-07-10 07:51] LABS: SGPT/ALT < 7 U/L (5-49)
[2023-07-10 08:00] VITALS: BP 109/79
[2023-07-10 08:12] LABS: VITAMIN D, 25-HYDROXY 11.7 ng/mL (30-100)
[2023-07-10 20:00] VITALS: BP 135/77
[2023-07-11] VITALS (7 sets, daily range): BP systolic 99–114; BP diastolic 50–80
[2023-07-11 05:47] LABS: BUN 14 mg/dl (9-23); CHLORIDE 107 mmol/L (98-107); POTASSIUM 3.9 mmol/L (3.4-5.1)
[2023-07-11 06:34] LABS: BASO % 0.2 % (0.0-1.0); HEMATOCRIT 35.1 % (37.0-47.0); LYMPH # 0.5 10*3/uL (1.3-4.4); LYMPH % 10.5 % (27.0-41.0); MEAN CELL VOLUME 92.4 fl (81.0-99.0); MEAN CORPUSCULAR HGB 28.9 pg (27.0-31.0); MEAN CORPUSCULAR HGB CONC 31.3 g/dl (33.0-37.0); MEAN PLATELET VOLUME 10.3 fl (9.6-12.3); MONO # 0.1 10*3/uL (0.1-1.0); MONO % 2.7 % (3.0-9.0); NEUT # 3.9 10*3/uL (2.3-7.9); NEUT % 86.4 % (47.0-73.0); PLATELET COUNT AUTOMATED 181 10*3/uL (130-400); RED CELL DISTRI WIDTH 12.7 % (0-14.5); WHITE BLOOD COUNT 4.5 10*3/uL (4.8-10.8)
[2023-07-12] VITALS: BP 92/48; BP 98/60
[2023-07-12 04:46] LABS: BUN 19 mg/dl (9-23); CHLORIDE 108 mmol/L (98-107)
[2023-07-12 04:50] LABS: POTASSIUM 4.9 mmol/L (3.4-5.1)
[2023-07-12 06:19] LABS: HEMATOCRIT 31.8 % (37.0-47.0); MEAN CELL VOLUME 94.4 fl (81.0-99.0); MEAN CORPUSCULAR HGB 29.4 pg (27.0-31.0); MEAN CORPUSCULAR HGB CONC 31.1 g/dl (33.0-37.0); MEAN PLATELET VOLUME 10.1 fl (9.6-12.3); PLATELET COUNT AUTOMATED 207 10*3/uL (130-400); RED BLOOD COUNT 3.37 10*6/uL (4.10-5.10); RED CELL DISTRI WIDTH 13.2 % (0-14.5); WHITE BLOOD COUNT 8.5 10*3/uL (4.8-10.8)
[2023-07-12 06:25] LABS: MANUAL DIFF REFLEX YES
[2023-07-12 07:40] LABS: OVALOCYTES FEW; TOTAL CELLS COUNTED 100 #CELLS
[2023-07-12 07:41] LABS: BURR CELLS FEW; PLATELET SUFFICIENCY NORMAL (NORMAL); POLYCHROMASIA SLIGHT
[2023-07-12 08:00] VITALS: BP 108/67
[2023-07-12 12:00] VITALS: BP 112/61
[2023-07-12] MEDS ORDERED: VITAMIN D350 MC2 PO (14:49)
[2023-07-12] MEDS ORDERED: ALPRAZOLAM0.25 M2 PO (14:49)
[2023-07-12] MEDS ORDERED: DOXYCYCLINE HY100 M3 PO (14:49)
[2023-07-12] MEDS ORDERED: PREDNISONE10 MG PO (14:49)
[2023-07-12 16:00] VITALS: BP 107/62
== END 2023-07-12 18:36 | DRG 74 ==
LOC: ED 08:25 → EDHOLD 13:14 → 5E 13:14 → 4E 07-11 18:23
PROVIDERS: Family Medicine; Internal Medicine; ADMIT Emergency Medicine; ATTEND Emergency Medicine
DX: G90.8 Other disorders of autonomic nervous system (principal); N39.0 Urinary tract infection, site not specified; E44.1 Mild protein-calorie malnutrition; J96.11 Chronic respiratory failure with hypoxia; J44.1 Chronic obstructive pulmonary disease with (acute) exacerbation; Z68.1 Body mass index [BMI] 19.9 or less, adult; E87.8 Other disorders of electrolyte and fluid balance, not elsewhere classified; K21.9 Gastro-esophageal reflux disease without esophagitis; I25.10 Atherosclerotic heart disease of native coronary artery without angina pectoris; E03.9 Hypothyroidism, unspecified; Z66 Do not resuscitate; G89.29 Other chronic pain; M25.511 Pain in right shoulder; D64.9 Anemia, unspecified; S00.81XA Abrasion of other part of head, initial encounter; E53.8 Deficiency of other specified B group vitamins; R79.89 Other specified abnormal findings of blood chemistry; E55.9 Vitamin D deficiency, unspecified; Z88.6 Allergy status to analgesic agent; Z90.711 Acquired absence of uterus with remaining cervical stump; Z87.891 Personal history of nicotine dependence; Z80.1 Family history of malignant neoplasm of trachea, bronchus and lung; Z81.8 Family history of other mental and behavioral disorders; Z86.718 Personal history of other venous thrombosis and embolism; I25.2 Old myocardial infarction; W18.39XA Other fall on same level, initial encounter; Y93.89 Activity, other specified; Y92.89 Other specified places as the place of occurrence of the external cause; Y99.8 Other external cause status

== ENCOUNTER 2023-12-09 04:32 | Inpatient (IN) | payer MEDICARE ==
[~2023-12-09] VITALS: Ht 157.4 cm; Wt 34.0 kg
[2023-12-09] VITALS (7 sets, daily range): BP systolic 98–141; BP diastolic 57–73
[~2023-12-09 04:32] MED LIST changes: +DOXYCYCLINE HY100 M3 PO; +IPRATROPIU0.2 MG/1 M NEB; +LACTULOSE10 GM/151 PO; +MEGESTROL PO; +MIRTAZAPINE30 M2 PO; +Motrin,Rufen400 MG PO; +NEURONTIN100 MG PO; +Ondansetron4 MG PO; +VITAMIN C500 M8 PO; +VITAMIN D350 MC2 PO; +XANAX1 MG PO
[2023-12-09] MEDS ORDERED: Albuterol Sulf/Ipratropium 3 ML VIAL NEB ONE (04:40)
[2023-12-09] MEDS ORDERED: methylPREDNISolone sod succ 125 MG VIAL IV ONE (04:40)
[2023-12-09 05:16] LABS: ALKALINE PHOSPHATASE 58 U/L (46-116); BUN 13 mg/dl (9-23); CHLORIDE 103 mmol/L (98-107); POTASSIUM 3.9 mmol/L (3.4-5.1); SGPT/ALT 8 U/L (5-49); TOTAL PROTEIN 6.6 gm/dL (6.0-8.0)
[2023-12-09 06:03] LABS: BASO # 0.1 10*3/uL (0.0-0.1); BASO % 1.6 % (0.0-1.0); EOS # 0.1 10*3/uL (0.0-0.4); EOS % 2.9 % (1.0-4.0); HEMATOCRIT 36.9 % (37.0-47.0); LYMPH # 0.9 10*3/uL (1.3-4.4); LYMPH % 24.6 % (27.0-41.0); MEAN CELL VOLUME 97.4 fl (81.0-99.0); MEAN CORPUSCULAR HGB 29.3 pg (27.0-31.0); MEAN CORPUSCULAR HGB CONC 30.1 g/dl (33.0-37.0); MEAN PLATELET VOLUME 9.4 fl (9.6-12.3); MONO # 0.4 10*3/uL (0.1-1.0); MONO % 9.3 % (3.0-9.0); NEUT # 2.3 10*3/uL (2.3-7.9); NEUT % 61.3 % (47.0-73.0); PLATELET COUNT AUTOMATED 469 10*3/uL (130-400); RED BLOOD COUNT 3.79 10*6/uL (4.10-5.10); RED CELL DISTRI WIDTH 14.3 % (0-14.5); WHITE BLOOD COUNT 3.8 10*3/uL (4.8-10.8)
[2023-12-09] MEDS ORDERED: SYNTHROID,LEV125 MCG PO (06:33)
[2023-12-09] MEDS ORDERED: Ondansetron Hydrochloride 4 MG/2 ML VIAL IV PRN (08:25)
[2023-12-09] MEDS ORDERED: BISACODYL 5 MG TAB PO PRN (09:40)
[2023-12-09] MEDS ORDERED: Magnesium Hydroxide 30 ML UDC PO PRN (09:40)
[2023-12-09] MEDS ORDERED: ALPRAZolam 0.5 MG TAB PO PRN (09:40)
[2023-12-09] MEDS ORDERED: ACETAMINOPHEN 325 MG TAB PO PRN (09:40)
[2023-12-09] MEDS ORDERED: LACTULOSE 20 GM/30 ML UDC PO PRN (09:40)
[2023-12-09] MEDS ORDERED: Enoxaparin Sodium 40 MG/0.4 ML SYR SC SCH (10:00)
[2023-12-09] MEDS ORDERED: Levothyroxine Sodium 125 MCG TAB PO SCH (10:00)
[2023-12-09] MEDS ORDERED: Albuterol Sulf/Ipratropium 3 ML VIAL NEB SCH (10:00)
[2023-12-09] MEDS ORDERED: AZITHROMYCIN 250 ML IV SCH (10:00)
[2023-12-09] MEDS ORDERED: Ceftriaxone Sodium 1 GM in SYRINGE INFUSION 10 ML IV SCH (11:00)
[2023-12-09] MEDS ORDERED: Regadenoson 0.4 MG/5 ML SYR IV ONE (12:45)
[2023-12-09] MEDS ORDERED: GABAPENTIN 100 MG CAP PO SCH (14:00)
[2023-12-09 20:03] LABS: BILIRUBIN Negative (Negative); BLOOD Negative (Negative); CLARITY Cloudy (Clear); COLOR Yellow (Yellow); GLUCOSE Negative (Negative); KETONE Negative (Negative); LEUKO ESTERASE Negative (Negative); NITRITE Negative (Negative); UROBILINOGEN 0.2 E.U./dl (0.0-1.0)
[2023-12-09 20:12] LABS: BACTERIA TRACE; YEAST 1+
[2023-12-09] MEDS ORDERED: Mirtazapine 15 MG TAB PO SCH (22:00)
[2023-12-10] MEDS ORDERED: Pantoprazole Sodium 40 MG TAB PO SCH (06:00)
[2023-12-10 06:45] LABS: BASO % 0.7 % (0.0-1.0); EOS % 0.7 % (1.0-4.0); HEMATOCRIT 30.4 % (37.0-47.0); LYMPH # 1.4 10*3/uL (1.3-4.4); LYMPH % 30.6 % (27.0-41.0); MEAN CELL VOLUME 96.8 fl (81.0-99.0); MEAN CORPUSCULAR HGB 29.3 pg (27.0-31.0); MEAN CORPUSCULAR HGB CONC 30.3 g/dl (33.0-37.0); MEAN PLATELET VOLUME 9.3 fl (9.6-12.3); MONO # 0.5 10*3/uL (0.1-1.0); MONO % 10.6 % (3.0-9.0); NEUT # 2.5 10*3/uL (2.3-7.9); NEUT % 57.2 % (47.0-73.0); PLATELET COUNT AUTOMATED 457 10*3/uL (130-400); RED BLOOD COUNT 3.14 10*6/uL (4.10-5.10); RED CELL DISTRI WIDTH 14.4 % (0-14.5); WHITE BLOOD COUNT 4.4 10*3/uL (4.8-10.8)
[2023-12-10 07:10] LABS: BUN 21 mg/dl (9-23); CHLORIDE 107 mmol/L (98-107); POTASSIUM 4.3 mmol/L (3.4-5.1)
[2023-12-10 12:00] VITALS: BP 126/54
[2023-12-10] MEDS ORDERED: Promethazine Hydrochloride 25 MG TAB PO PRN (12:05)
[2023-12-10] MEDS ORDERED: SODIUM CHLORIDE 0.9% 250 ML IV ONE ×2 (12:05→12:40)
[2023-12-10 16:00] VITALS: BP 92/38
[2023-12-10 20:00] VITALS: BP 98/54
[2023-12-10] MEDS ORDERED: methylPREDNISolone sod succ 40 MG VIAL IV ONE (22:05)
[2023-12-10] MEDS ORDERED: GUAIFENESIN 600 MG TAB ER PO SCH (22:10)
[2023-12-11] VITALS: BP 92/50
[2023-12-11 07:13] LABS: BASO % 0.3 % (0.0-1.0); HEMATOCRIT 31.4 % (37.0-47.0); LYMPH # 0.4 10*3/uL (1.3-4.4); LYMPH % 11.9 % (27.0-41.0); MEAN CELL VOLUME 98.4 fl (81.0-99.0); MEAN CORPUSCULAR HGB 29.5 pg (27.0-31.0); MEAN CORPUSCULAR HGB CONC 29.9 g/dl (33.0-37.0); MEAN PLATELET VOLUME 9.4 fl (9.6-12.3); MONO % 0.6 % (3.0-9.0); NEUT # 2.8 10*3/uL (2.3-7.9); NEUT % 86.9 % (47.0-73.0); PLATELET COUNT AUTOMATED 498 10*3/uL (130-400); RED BLOOD COUNT 3.19 10*6/uL (4.10-5.10); RED CELL DISTRI WIDTH 14.5 % (0-14.5); WHITE BLOOD COUNT 3.2 10*3/uL (4.8-10.8)
[2023-12-11 07:39] LABS: BUN 16 mg/dl (9-23); CHLORIDE 105 mmol/L (98-107); POTASSIUM 4.8 mmol/L (3.4-5.1)
[2023-12-11 08:00] VITALS: BP 116/58
[2023-12-11] MEDS ORDERED: methylPREDNISolone sod succ 40 MG VIAL IV SCH (10:00)
[2023-12-11 12:00] VITALS: BP 105/55
[2023-12-11 20:00] VITALS: BP 98/54
[2023-12-12] VITALS: BP 94/48
[2023-12-12 06:08] LABS: BASO % 0.2 % (0.0-1.0); HEMATOCRIT 30.2 % (37.0-47.0); LYMPH # 0.4 10*3/uL (1.3-4.4); LYMPH % 9.4 % (27.0-41.0); MEAN CELL VOLUME 96.2 fl (81.0-99.0); MEAN CORPUSCULAR HGB 29.3 pg (27.0-31.0); MEAN CORPUSCULAR HGB CONC 30.5 g/dl (33.0-37.0); MEAN PLATELET VOLUME 9.4 fl (9.6-12.3); MONO # 0.1 10*3/uL (0.1-1.0); MONO % 1.8 % (3.0-9.0); NEUT % 88.2 % (47.0-73.0); PLATELET COUNT AUTOMATED 554 10*3/uL (130-400); RED BLOOD COUNT 3.14 10*6/uL (4.10-5.10); RED CELL DISTRI WIDTH 14.6 % (0-14.5); WHITE BLOOD COUNT 4.5 10*3/uL (4.8-10.8)
[2023-12-12 06:11] LABS: BUN 15 mg/dl (9-23); CHLORIDE 107 mmol/L (98-107); POTASSIUM 4.3 mmol/L (3.4-5.1)
[2023-12-12 08:00] VITALS: BP 107/58
[2023-12-12 12:00] VITALS: BP 104/59
[2023-12-12] MEDS ORDERED: LINEZOLID 300 ML IV SCH (13:00)
[2023-12-12 16:00] VITALS: BP 109/63
[2023-12-13] VITALS: BP 125/75
[2023-12-13 07:59] VITALS: BP 125/71
[2023-12-13] MEDS ORDERED: Lidocaine Hydrochloride 15 ML UDC PO STA (08:18)
[2023-12-13] MEDS ORDERED: MG-AL HYDROXIDE/SIMETICONE 30 ML UDC PO STA (08:18)
[2023-12-13] MEDS ORDERED: Dicyclomine Hydrochloride 20 MG/10 ML OSYR PO STA (08:18)
[2023-12-13] MEDS ORDERED: Ipratropium Brom3 ML NEB (08:50)
[2023-12-13] MEDS ORDERED: MUCUS RELIEF600 MG PO (08:50)
[2023-12-13] MEDS ORDERED: LINEZOLID600 MG PO (08:50)
[2023-12-13] MEDS ORDERED: PREDNISONE10 MG PO (08:50)
[2023-12-13] MEDS ORDERED: DOXYCYCLINE HY100 M3 PO (08:50)
[2023-12-13] MEDS ORDERED: XANAX1 MG PO (08:50)
[2023-12-13 12:00] VITALS: BP 99/65
== END 2023-12-13 15:40 | DRG 193 ==
LOC: ED 04:32 → EDHOLD 06:21 → ICCU 06:21 → EDHOLD 09:44 → ICCU 19:48
PROVIDERS: Internal Medicine; Registered Nurse; Student in an Organized Health Care Education/Training Program; ADMIT Student in an Organized Health Care Education/Training Program; ATTEND Student in an Organized Health Care Education/Training Program
PROC: 4A02XM4 Measurement of Cardiac Total Activity, External Approach (ICD-10-PCS; principal; 2023-12-09)
PROC: 3E073KZ Introduction of Other Diagnostic Substance into Coronary Artery, Percutaneous Approach (ICD-10-PCS; 2023-12-09)
DX: J15.9 Unspecified bacterial pneumonia (principal); J96.21 Acute and chronic respiratory failure with hypoxia; J44.1 Chronic obstructive pulmonary disease with (acute) exacerbation; E44.0 Moderate protein-calorie malnutrition; J44.0 Chronic obstructive pulmonary disease with (acute) lower respiratory infection; Z68.1 Body mass index [BMI] 19.9 or less, adult; D64.9 Anemia, unspecified; D75.839 Thrombocytosis, unspecified; K21.9 Gastro-esophageal reflux disease without esophagitis; E03.9 Hypothyroidism, unspecified; I95.9 Hypotension, unspecified; Z22.39 Carrier of other specified bacterial diseases; Z90.710 Acquired absence of both cervix and uterus; Z87.891 Personal history of nicotine dependence; Z80.1 Family history of malignant neoplasm of trachea, bronchus and lung; Z88.5 Allergy status to narcotic agent; Z79.899 Other long term (current) drug therapy; Z82.0 Family history of epilepsy and other diseases of the nervous system